=== PATIENT | male | born 1945 | race Caucasian/White ===

== ENCOUNTER → 2023-04-06 08:52 | Outpatient (BNVA) | payer OTHER, SELFPAY | PROVIDERS: Visit Provider Podiatrist Foot & Ankle Surgery | DX: E11.42 Type 2 diabetes mellitus with diabetic polyneuropathy (principal); M20.41 Other hammer toe(s) (acquired), right foot; M20.42 Other hammer toe(s) (acquired), left foot; M21.621 Bunionette of right foot; M21.622 Bunionette of left foot; L60.3 Nail dystrophy; Z79.84 Long term (current) use of oral hypoglycemic drugs | CPT/HCPCS: 11721; 99204 ==

== ENCOUNTER → 2023-06-15 07:51 | Outpatient (BNVA) | payer OTHER, SELFPAY | PROVIDERS: Visit Provider Podiatrist Foot & Ankle Surgery | DX: E11.42 Type 2 diabetes mellitus with diabetic polyneuropathy (principal); M20.41 Other hammer toe(s) (acquired), right foot; M20.42 Other hammer toe(s) (acquired), left foot; M21.621 Bunionette of right foot; M21.622 Bunionette of left foot; L60.3 Nail dystrophy; Z79.84 Long term (current) use of oral hypoglycemic drugs | CPT/HCPCS: 11721 ==

== ENCOUNTER → 2023-06-29 08:00 | Outpatient (BNVA) | payer OTHER, SELFPAY | PROVIDERS: Referring Provider Emergency Medicine Emergency Medical Services; Visit Provider Surgery | DX: Z98.890 Other specified postprocedural states (principal); Z86.010 Personal history of colon polyps | CPT/HCPCS: 99203 ==

== ENCOUNTER → 2023-09-07 07:58 | Outpatient (BNVA) | payer OTHER, SELFPAY | PROVIDERS: Visit Provider Podiatrist Foot & Ankle Surgery | DX: E11.42 Type 2 diabetes mellitus with diabetic polyneuropathy (principal); M20.41 Other hammer toe(s) (acquired), right foot; M20.42 Other hammer toe(s) (acquired), left foot; M21.621 Bunionette of right foot; M21.622 Bunionette of left foot; L60.3 Nail dystrophy; Z79.4 Long term (current) use of insulin | CPT/HCPCS: 11721 ==

== ENCOUNTER 2023-09-09 11:41 | Day surgery (SDC) | payer OTHER, SELFPAY ==
[2023-09-09 12:03] VITALS: BP 152/82; PULSE 69; RESP 18; TEMP 36.9; O2SAT 96; BMI 32.5
--- NOTE | 2023-09-09 12:03 | W.PM.OPSFHP ---
Same Day Surgery H&P Indication for Procedure/HPI DATE OF PROCEDURE: September 09, 2023 CHIEF COMPLAINT/INDICATIONFOR SURGICAL PROCEDURE: history of colon polyps PREOP DIAGNOSIS: history of colon polyps PLANNED PROCEDURE: Operation Date: 09/09/23 12:45 Proposed Procedures p 43175 colon G0121 screen colon A risk Z98.890(Not Applicable) - Marino Stephens MD Medications/Allergies* Home Medications Medication Instructions Recorded Confirmed Type atorvastatin 10 mg tablet 10 mg PO DAILY 04/06/23 09/09/23 History cetirizine 10 mg tablet 10 mg PO DAILY PRN Allergy Symptoms 04/06/23 09/09/23 History lisinopril 10 mg tablet 10 mg PO DAILY 04/06/23 09/09/23 History metformin 500 mg tablet 500 mg PO BID 04/06/23 09/09/23 History tamsulosin 0.4 mg capsule 0.4 mg PO BEDTIME 04/06/23 09/09/23 History Allergies/Adverse Reactions Allergy/AdvReac Type Severity Reaction Status Date / Time No Known Allergies Allergy Verified 09/09/23 12:00 Pertinent History/Comorbid Conditions* Surgical History (Updated 06/29/23 @ 10:07 by Marino Stephens MD) Hx of colonoscopy with polypectomy x2 4 yrs ago Social History Smoking and tobacco/nicotine status: never used tobacco/nicotine Pertinent Exam Findings alert, oriented x 3, clear to auscultation bilaterally and regular rate & rhythm Recommendations Surgery/Procedure today Coding Level of Care Code Acute Code for Chg Fwd
[2023-09-09] MEDS: sodium chloride 0.9% 1,000 ML 30 ML IV (12:09)
[2023-09-09 12:13] LABS: Glucose Point of Care 120 mg/dL (70-110)
--- NOTE | 2023-09-09 12:17 | ANES.PREANE2 ---
Pre-Anesthetic Assessment Height/Weight: Height 1.83 m Weight 108.862 kg Temp Pulse Resp BP Pulse Ox O2 Del Method 98.5 F 69 18 152/82 96 Room Air 09/09/23 12:03 09/09/23 12:03 09/09/23 12:03 09/09/23 12:03 09/09/23 12:03 09/09/23 12:03 Preop Diagnosis: history of colon polyps Operation Date: 09/09/23 12:45 Proposed Procedures p 46153 colon G0121 screen colon A risk Z98.890(Not Applicable) - Marino Stephens MD Last intake: Intake Last Liquid Date 09/09/23 Last Liquid Time 08:30 Last Solid Date 09/07/23 Last Solid Time 18:30 Social No alcohol and No tobacco Airway Submandibular: within normal limits Cervical ROM: within normal limits Mallampati: Class II Dentition: full Pulmonary None reported CV/HEM Hypertension GI None reported Metabolic Diabetes Mellitus Anesthetic Plan ASA status: 2 Anesthesia: MAC Risk of > 500 ml blood loss (7ml/kg in children): No Medications/Allergies Home Medications Medication Instructions Recorded Confirmed Last Taken Type atorvastatin 10 mg tablet 10 mg PO DAILY 04/06/23 09/09/23 09/09/23 History cetirizine 10 mg tablet 10 mg PO DAILY PRN Allergy Symptoms 04/06/23 09/09/23 09/09/23 History lisinopril 10 mg tablet 10 mg PO DAILY 04/06/23 09/09/23 09/09/23 History metformin 500 mg tablet 500 mg PO BID 04/06/23 09/09/23 09/08/23 History tamsulosin 0.4 mg capsule 0.4 mg PO BEDTIME 04/06/23 09/09/23 09/08/23 History magnesium citrate 300 ml PO DAILY PRN constipation 06/29/23 09/09/23 09/09/23 Rx #296 mL Allergies Allergy/AdvReac Type Severity Reaction Status Date / Time No Known Allergies Allergy Verified 09/09/23 12:00 Current Medications Generic Name Dose Route Start Last Admin Trade Name Freq PRN Reason Stop Dose Admin Sodium Chloride 1,000 mls @ 30 mls/hr 09/09/23 12:00 09/09/23 12:09 Sodium Chloride 0.9% IV 30 mls/hr .Q24H MAL Administration PFSH Anesthesia Surgical History Hx of colonoscopy with polypectomy x2 4 yrs ago Social History Smoking and tobacco/nicotine status: never used tobacco/nicotine Data Anesthesia Cardiac Studies: No Data to Display
[2023-09-09 13:01] VITALS: BP 110/62; PULSE 55; RESP 18; TEMP 36.1; O2SAT 98
[2023-09-09 13:10] VITALS: BP 102/68; PULSE 53; RESP 18; O2SAT 99
[2023-09-09 13:25] VITALS: BP 112/82; PULSE 56; RESP 18; O2SAT 98
--- NOTE | 2023-09-09 14:17 | ANE.PACU2 ---
Inpatient post-anesthesia follow up: Vital signs: Temperature 97 F Pulse Rate 56 Respiratory Rate 18 Blood Pressure 112/82 Pulse Oximetry 98 Oxygen Delivery Me thod Room Air Oxygen Flow Rate Fraction of Inspir ed Oxygen Hydration adequate: Yes Nausea and vomiting: No Pain level: 1 Mental status: Baseline Additional Comments: no apparent anesthetic complications noted.
== END 2023-09-09 14:00 | disposition home or self-care (01) ==
PROVIDERS: Visit Provider Surgery
PROC: 0DJD8ZZ Inspection of Lower Intestinal Tract, Via Natural or Artificial Opening Endoscopic (ICD-10-PCS; CPT 45378; principal; 2023-09-09 12:45)
DX: Z12.11 Encounter for screening for malignant neoplasm of colon (principal); Z86.010 Personal history of colon polyps; Z79.84 Long term (current) use of oral hypoglycemic drugs; K63.5 Polyp of colon; I10 Essential (primary) hypertension; E11.9 Type 2 diabetes mellitus without complications
CPT/HCPCS: 36416; 45385; 82962; J2704; J7030

== ENCOUNTER → 2023-12-01 11:33 | Outpatient (BNVA) | payer OTHER, SELFPAY | PROVIDERS: Visit Provider Surgery | DX: Z09 Encounter for follow-up examination after completed treatment for conditions other than malignant neoplasm (principal) | CPT/HCPCS: 99213 ==

== ENCOUNTER → 2023-12-14 08:01 | Outpatient (BNVA) | payer OTHER, SELFPAY | PROVIDERS: Visit Provider Podiatrist Foot & Ankle Surgery | DX: E11.42 Type 2 diabetes mellitus with diabetic polyneuropathy (principal); M20.41 Other hammer toe(s) (acquired), right foot; M20.42 Other hammer toe(s) (acquired), left foot; M21.621 Bunionette of right foot; M21.622 Bunionette of left foot; L60.3 Nail dystrophy; Z79.84 Long term (current) use of oral hypoglycemic drugs | CPT/HCPCS: 11721 ==

== ENCOUNTER → 2024-03-28 08:00 | Outpatient (BNVA) | payer OTHER, SELFPAY | PROVIDERS: Visit Provider Podiatrist Foot & Ankle Surgery | DX: E11.42 Type 2 diabetes mellitus with diabetic polyneuropathy (principal); L60.3 Nail dystrophy; Z79.84 Long term (current) use of oral hypoglycemic drugs | CPT/HCPCS: 11721 ==

== ENCOUNTER → 2024-06-27 08:39 | Outpatient (BNVA) | payer OTHER, SELFPAY | PROVIDERS: Visit Provider Podiatrist Foot & Ankle Surgery | DX: E11.42 Type 2 diabetes mellitus with diabetic polyneuropathy (principal); L60.3 Nail dystrophy | CPT/HCPCS: 11721 ==

== ENCOUNTER 2024-07-19 13:39 | Outpatient (CLI) | payer OTHER, SELFPAY | END 2024-07-19 13:40 | disposition home or self-care (01) | LOC: LAB 13:44 | PROVIDERS: PCP Nurse Practitioner Family; Visit Provider Urology | DX: N40.1 Benign prostatic hyperplasia with lower urinary tract symptoms (principal) | CPT/HCPCS: 36415; 84153 ==

== ENCOUNTER → 2024-09-26 08:47 | Outpatient (BNVA) | payer OTHER, SELFPAY | PROVIDERS: PCP Nurse Practitioner Family; Visit Provider Podiatrist Foot & Ankle Surgery | DX: E11.42 Type 2 diabetes mellitus with diabetic polyneuropathy (principal); L60.3 Nail dystrophy; Z79.84 Long term (current) use of oral hypoglycemic drugs | CPT/HCPCS: 11721 ==

== ENCOUNTER 2024-12-19 08:36 | Outpatient (CLI) | payer OTHER, SELFPAY ==
--- NOTE | 2024-12-19 08:41 | US_ITS ---
WS: [id number] RIGHT UPPER QUADRANT ULTRASOUND HISTORY: ELEVATED LIVER ENZYMES COMPARISON: None available. Liver: 17.2 cm in length. Top normal size liver. No mass. No intrahepatic duct dilatation. Portal Vein: Normal hepatopetal flow with monophasic waveform. Gallbladder: Normally distended gallbladder with no stones or wall thickening. CBD: 0.4 cm Pancreas: The body is normal. Head and tail obscured by bowel gas. Right kidney: 11.2 cm in length. Cortical cyst upper pole 1.6 x 1.1 x 1.6 cm. No obstruction or mass. Aorta and IVC: Unremarkable abdominal aorta and IVC. No ascites. US/US abdomen limited 12625 IMPRESSION: 1. Quality is limited by body habitus. 2. No cholelithiasis. 3. Liver top normal size. No intrahepatic duct dilatation. 4. Cortical cyst RIGHT kidney, maximum diameter 1.6 cm.
== END 2024-12-19 08:37 | disposition home or self-care (01) ==
LOC: RAD 08:38
PROVIDERS: PCP Family Medicine; Visit Provider Family Medicine
DX: Z01.89 Encounter for other specified special examinations (principal); N28.1 Cyst of kidney, acquired
CPT/HCPCS: 76705

== ENCOUNTER → 2024-12-26 09:02 | Outpatient (BNVA) | payer OTHER, SELFPAY | PROVIDERS: PCP Family Medicine; Visit Provider Podiatrist Foot & Ankle Surgery | DX: E11.8 Type 2 diabetes mellitus with unspecified complications (principal); E11.42 Type 2 diabetes mellitus with diabetic polyneuropathy; L60.3 Nail dystrophy; Z79.84 Long term (current) use of oral hypoglycemic drugs | CPT/HCPCS: 99213 ==

== ENCOUNTER 2025-03-26 15:09 | Emergency (ER) | payer MEDICARE, SELFPAY ==
--- OUTSIDE RECORDS SUMMARY | 2025-03-26 08:26 | XMS_ITS | Continuity of Care Document ---
Author Name [facility] Organization [facility] Care Team Providers Care Dramatic Reader Name Role Phone [facility] Unavailable Unavailable Problems Combined list of problems from Department of Defense and Veterans Affairs facilities. It does not include entries that were removed or entered in error. Problem Status Onset Date Problem Type Date of Resolution Comments Source Adenomatous polyp of colon Active Condition [facility] Benign prostatic hypertrophy Active Condition [facility] Benign Prostatic Hypertrophy Without Outflow Obstruction (SCT 753779663) Active Condition [facility] Diabetes Mellitus Type 2 (SCT 33833971) Active Condition [facility] Elevated blood pressure Active Condition [facility] History of hip surgery Active Condition Oct 02, 2022 Entered By: SEN WALLIS Comment: Bilateral replacement. [facility] HTN - Hypertension (SCT [id number]) Active Condition [facility] Hyperlipidemia (SCT 16311313) Active Condition [facility] Mixed hyperlipidemia Active Condition [facility] Nephrolithiasis Active Condition [facility] Rqx-ruoxvxr-tqarrmv nt diabetes mellitus Active Condition [facility] Osteoarthritis of bilateral hip joints Active Condition [facility] Prostate nodule Active Condition Sep 20, 2024 Entered By: GANESH RODRIGUEZ MY Comment: negative Bx [facility] Renal Impairment (SCT 404046280) Active Condition Nov 11, 2023 Entered By: SEN WALLIS Comment: Mild per lab 11/2023. 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, acc, init Active Diagnosis [facility] Diagnosis: ICD-10-CM T63.301A Toxic effect of unsp spider venom, accidental, init Active Diagnosis [facility] Diagnosis: ICD-10-CM Z48.02 Encounter for removal of sutures Active Diagnosis [facility] Diagnosis: ICD-10-CM D49.2 Neoplasm of unsp behavior of bone, soft tissue, and skin Active Diagnosis [facility] Diagnosis: ICD-10-CM E11.9 Type 2 diabetes mellitus without complications Active Diagnosis [facility] Diagnosis: ICD-10-CM Z23 Encounter for immunization Active Diagnosis [place] [facility] Diagnosis: ICD-10-CM Z46.1 Encounter for fitting and adjustment of hearing aid Active Diagnosis [place] [facility] Diagnosis: ICD-10-CM N28.9 Disorder of kidney and ureter, unspecified Active Diagnosis [facility] Medications Combined list of outpatient medications from Department of Defense and Veterans Affairs facilities.Medications provided include 1) outpatient medications from the last 15 months, and 2) patient-reported medications. Medication Details Route Status Patient Instructions Prescription Expires Prescription Number Last Dispense Date Ordering Provider Order Date Order Qty Source ATORVASTATI N CA 40MG TAB TAKE ONE-HALF TABLET BY MOUTH EVERY EVENING FOR HIGH CHOLESTE ROL ORAL ACTIVE 07/28/2025 [id number] BERT MONROY [address] [place] [address] CB ATORVASTATI N CA 40MG TAB TAKE ONE-HALF TABLET BY MOUTH EVERY EVENING FOR HIGH CHOLESTE ROL ORAL DISCONT INUED 07/22/2024 [id number] 4 CALE WALLIS [address] [place], [place] [address]OC CETIRIZINE HCL 10MG TAB TAKE ONE TABLET BY MOUTH ONCE A DAY NEEDED FOR ALLERGY SYMPTOMS ORAL ACTIVE 08/23/2025 [id number] 5 Joseph PEREZ Q [address] [place] [address] [facility] CETIRIZINE HCL 10MG TAB TAKE ONE TABLET BY MOUTH ONCE A DAY NEEDED FOR ALLERGY SYMPTOMS ORAL 07/22/2024 [id number] 4 CALE WALLIS [address] [place] [address] CRANBERRY EXTRACT CAP/TAB TAKE 1 CAP/TAB BY MOUTH EVERY DAY ORAL ACTIVE GINNA WHITLOCK MD 2014 [facility] EMPAGLIFLOZ IN 25MG TAB TAKE ONE-HALF TABLET BY MOUTH ONCE A DAY FOR DIABETES ORAL SUSPEND ED 12/14/2025 [id number] 5 SHAVON RODRIGUEZ [address] [place] [address] [facility] HYDROCHLORO THIAZIDE 12.5MG/TRACEY NOPRIL 10MG TAB TAKE 1 TABLET BY MOUTH EVERY MORNING FOR HIGH BLOOD PRESSURE ORAL ACTIVE 09/14/2025 [id number] 5 SHAVON RODRIGUEZ [address] [place] [address] [facility] HYDROCHLORO THIAZIDE 12.5MG/TRACEY NOPRIL 10MG TAB TAKE 1 TABLET BY MOUTH EVERY MORNING FOR HIGH BLOOD PRESSURE ORAL DISCONT INUED 07/22/2024 [id number] 4 CALE WALLIS [address] [place] [address] [facility] METFORMIN HCL 1000MG TAB TAKE ONE-HALF TABLET BY MOUTH TWICE A DAY WITH MEALS FOR DIABETES TAKE WITH FOOD. AVOID ALCOHOL. DISCONTI NUE BEFORE GETTING XRAY DYE. ORAL ACTIVE 08/19/2025 [id number] Joseph PEREZ Q [address] [place] [address] [facility] METFORMIN HCL 1000MG TAB TAKE ONE-HALF TABLET BY MOUTH TWICE A DAY WITH MEALS FOR DIABETES TAKE WITH FOOD. AVOID ALCOHOL. DISCONTI NUE BEFORE GETTING XRAY DYE. ORAL 07/22/2024 [id number] 4 CALE WALLIS [address] [place] [address] [facility] MULTIVITS W/MINERALS TAB/CAP (NO VIT K) TAKE ONE TABLET BY MOUTH EVERY DAY ORAL ACTIVE GINNA WHITLOCK MD 2014 [facility] TAMSULOSIN HCL 0.4MG CAP TAKE ONE CAPSULE BY MOUTH AT BEDTIME APPROXIM ATELY 30 MINUTES AFTER THE SAME MEAL EACH DAY ORAL ACTIVE 01/11/2026 [id number] 5 SHAVON RODRIGUEZ [address] [place] [address] [facility] TAMSULOSIN HCL 0.4MG CAP TAKE ONE CAPSULE BY MOUTH AT BEDTIME APPROXIM ATELY 30 MINUTES AFTER THE SAME MEAL EACH DAY ORAL DISCONT INUED 11/04/2024 [id number] 5 KADI CALE Ledy 2023 90 [facility] Immunizations Combined list of available immunizations from the Department of Defense and Veterans Affairs facilities. Immunization Series Date Given Administered By Site Reaction Lot Number CVX Code Drug Stand In Status Comments Source COVID-19 (MODERNA), MRNA, LNP-S, PF, 50 MCG/0.5 ML (AGES 12+ YEARS) 2024 JARRET AZAR R LEFT DELTO ID [id number] 312 complet ed [facility] TDAP 2024 JARRET AZAR R RIGHT DELTO ID [id number] 115 complet ed [facility] INFLUENZA, SPLIT VIRUS, TRIVALENT, PF 2023 HIGHFILL,CATRACHO NDA RIGHT DELTO ID [id number] 140 complet ed [facility] AT [facility] INFLUENZA, HIGH-DOSE, QUADRIVALENT 2022 MICHELLE TOBIN R LEFT DELTO ID [id number] 197 complet ed [facility] COVID-19 (MODERNA), MRNA, LNP-S, BIVALENT BOOSTER, PF, 50 MCG/0.5 ML OR 25MCG/0.25 ML DOSE 2021 WAYNE,LANC E A RIGHT DELTO ID [id number] 229 complet ed Booster for Series, [facility] INFLUENZA, INJECTABLE, MDCK, PRESERVATIVE FREE, QUADRIVALENT 2021 GRETARD,LANC E A LEFT DELTO ID [id number] 171 complet ed [facility], UNSPECIFIED FORMULATION 2021 88 complet ed HISTORICA L INFORMATI ON - FROM OTHER REGISTRY, noted in jlv [facility] ZOSTER RECOMBINANT 2 2021 187 [facility] ed [facility] ([facility]), MRNA, LNP-S, PF, 100 MCG OR 50 MCG DOSE 3 2020 207 complet ed [place] [facility] INFLUENZA, UNSPECIFIED FORMULATION 2020 88 complet ed [facility] [place] [facility] COVID-19 (MODERNA), MRNA, LNP-S, PF, 100 MCG/0.5ML DOSE OR 50 MCG/0.25ML DOSE 3 2020 207 complet ed HISTORICA L INFORMATI ON - FROM OTHER REGISTRY, noted in JLV [facility] DIVISIO N ZOSTER RECOMBINANT 1 2020 187 complet ed [facility] COVID-19 (MODERNA), MRNA, LNP-S, PF, 100 MCG/0.5 ML DOSE 2 2020 207 complet ed MOD; [id number]; 1 [facility] COVID-19 (MODERNA), MRNA, LNP-S, PF, 100 MCG/0.5 ML DOSE 1 2020 207 complet ed MOD; [id number]; 1 [facility] INFLUENZA, UNSPECIFIED FORMULATION 2019 88 complet ed [facility] [place] [facility] INFLUENZA, TRIVALENT, ADJUVANTED 2018 168 complet ed [facility] INFLUENZA, TRIVALENT, ADJUVANTED 2017 168 complet ed [facility] INFLUENZA, UNSPECIFIED FORMULATION 2017 88 complet ed [facility] INFLUENZA, INJECTABLE, QUADRIVALENT, PRESERVATIVE FREE 2016 150 complet ed [facility] INFLUENZA, SEASONAL, INJECTABLE, PRESERVATIVE FREE 2015 140 complet ed [facility] PNEUMOCOCCAL CONJUGATE PCV 13 2014 133 complet ed Wyeth Lot# [id number] exp-11/16 [facility] INFLUENZA, SEASONAL, INJECTABLE 2014 141 complet ed [facility] [place] [facility] TETANUS DIPHTHERIA AND PERTUSSIS (HISTORICAL) 2013 107 complet ed Adacel, Lot#[id number] AA Exp. . 2016 [facility] [place] [facility] TDAP [address] [facility] N INFLUENZA, UNSPECIFIED FORMULATION 2013 88 complet ed [facility] [place] [facility] PNEUMOCOCCAL POLYSACCHARID E [id number] 2010 33 complet ed [facility] Results Combined list of recent chemistry, hematology and other laboratory results from Department of Defense and Veterans Affairs, ranging from 15 months to all on record, depending upon the facility. Order Name Results Value Reference Range Date Interpretation Specimen Comments Source ACUTE HEPATITIS PROFILE (PB) HEPATITIS C VIRUS AB [PRESENCE] IN SERUM Nonreacti ve 11/28 Specimen Type: SERUM No comment entered. Ordering Provider: SHAVON RODRIGUEZ Report Released Date/Time : Nov 29, 2024 11:51 AM Reporting Lab: [place] [facility] [address] [place] [address] Performin g Lab: [place] [facility] [address] [place] [address] [facility] ACUTE HEPATITIS PROFILE (PB) HEPATITIS B VIRUS CORE IGM AB [PRESENCE] IN SERUM Nonreacti ve 11/28 Specimen Type: SERUM No comment entered. Ordering Provider: SHAVON RODRIGUEZ Report Released Date/Time : Nov 29, 2024 11:51 AM Reporting Lab: [place] [facility] [address] [place] [address] Performin g Lab: [place] [facility] [address] [place] [address] [facility] ACUTE HEPATITIS PROFILE (PB) HEPATITIS A VIRUS IGM AB [PRESENCE] IN SERUM Nonreacti ve 11/28 Specimen Type: SERUM No comment entered. Ordering Provider: SHAVON RODRIGUEZ Report Released Date/Time : Nov 29, 2024 11:51 AM Reporting Lab: [place] [facility] [address] [place] [address] Performin g Lab: [place] [facility] [address] [place] [address] [facility] ACUTE HEPATITIS PROFILE (PB) HEPATITIS B VIRUS SURFACE AG [PRESENCE] IN SERUM Nonreacti ve 11/28 Specimen Type: SERUM No comment entered. Ordering Provider: SHAVON RODRIGUEZ Report Released Date/Time : Nov 29, 2024 11:51 AM Reporting Lab: [place] [facility] [address] [place] [address] Performin g Lab: [place] [facility] [address] [place] [address] [facility] CBC LEUKOCYTES [#/VOLUME] IN BLOOD BY AUTOMATED COUNT 4.9 10*3/uL 3.6 - 11.2 11/28 Specimen Type: BLOOD No comment entered. Ordering Provider: SHAVON RODRIGUEZ Report Released Date/Time : Nov 24, 2024 10:49 AM Reporting Lab: [place] [facility] [address] [place] [address] Performin g Lab: [place] [facility] [address] [place] [address] [facility] CBC ERYTHROCYTE S [#/VOLUME] IN BLOOD BY AUTOMATED COUNT 4.34 10*6/uL 4.10 - 5.70 11/28 Specimen Type: BLOOD No comment entered. Ordering Provider: SHAVON RODRIGUEZ Report Released Date/Time : Nov 24, 2024 10:49 AM Reporting Lab: [place] [facility] [address] [place] [address] 8 Performin g Lab: [place] [facility] [address] [place] [address] [facility] CBC HEMOGLOBIN [MASS/VOLUM E] IN BLOOD 13.3 g/dL 13.1 - 16.8 11/28 Specimen Type: BLOOD No comment entered. Ordering Provider: SHAVON RODRIGUEZ Report Released Date/Time : Nov 24, 2024 10:49 AM Reporting Lab: [place] [facility] [address] [place] [address] Performin g Lab: [place] [facility] [address] [place] [address] [facility] CBC HEMATOCRIT [VOLUME FRACTION] OF BLOOD 39.6 38.2 - 48.4 11/28 Specimen Type: BLOOD No comment entered. Ordering Provider: SHAVON RODRIGUEZ Report Released Date/Time : Nov 24, 2024 10:49 AM Reporting Lab: [place] [facility] [address] [place] [address] Performin g Lab: [place] [facility] [address] [place] [address] [facility] CBC MCV [ENTITIC VOLUME] BY AUTOMATED COUNT 91.2 fL 80.0 - 100.0 11/28 Specimen Type: BLOOD No comment entered. Ordering Provider: SHAVON RODRIGUEZ Report Released Date/Time : Nov 24, 2024 10:49 AM Reporting Lab: [place] [facility] [address] [place] [address] Performin g Lab: [place] [facility] [address] [place] [address] [facility] CBC MCH [ENTITIC MASS] BY AUTOMATED COUNT 30.6 pg 27.0 - 34.0 11/28 Specimen Type: BLOOD No comment entered. Ordering Provider: SHAVON RODRIGUEZ Report Released Date/Time : Nov 24, 2024 10:49 AM Reporting Lab: [place] [facility] [address] [place] [address] Performin g Lab: [place] [facility] [address] [place] [address] [facility] CBC MCHC [MASS/VOLUM E] BY AUTOMATED COUNT 33.6 g/dL 33.0 - 36.0 11/28 Specimen Type: BLOOD No comment entered. Ordering Provider: SHAVON RODRIGUEZ Report Released Date/Time : Nov 24, 2024 10:49 AM Reporting Lab: [place] [facility] [address] [place] [address] Performin g Lab: [place] [facility] [address] [place] [address] [facility] CBC PLATELETS [#/VOLUME] IN BLOOD BY AUTOMATED COUNT 230 10*3/uL 150 - 400 11/28 Specimen Type: BLOOD No comment entered. Ordering Provider: SHAVON RODRIGUEZ Report Released Date/Time : Nov 24, 2024 10:49 AM Reporting Lab: [place] [facility] [address] [place] [address] Performin g Lab: [place] [facility] [address] [place] [address] [facility] CBC PLATELET MEAN VOLUME [ENTITIC VOLUME] IN BLOOD BY AUTOMATED COUNT 9.7 fL 7.5 - 11.2 11/28 Specimen Type: BLOOD No comment entered. Ordering Provider: SHAVON RODRIGUEZ Report Released Date/Time : Nov 24, 2024 10:49 AM Reporting Lab: [place] [facility] [address] [place] [address] Performin g Lab: [place] [facility] [address] [place] [address] [facility] CBC ERYTHROCYTE DISTRIBUTIO N WIDTH [RATIO] BY AUTOMATED COUNT 13.0 11.8 - 15.1 11/28 Specimen Type: BLOOD No comment entered. Ordering Provider: SHAVON RODRIGUEZ Report Released Date/Time : Nov 24, 2024 10:49 AM Reporting Lab: [place] [facility] [address] [place] [address] Performin g Lab: [place] [facility] [address] [place] [address] [facility] CBC LYMPHOCYTES /100 LEUKOCYTES IN BLOOD BY AUTOMATED COUNT 17.2 11/28 Specimen Type: BLOOD No comment entered. Ordering Provider: SHAVON RODRIGUEZ Report Released Date/Time : Nov 24, 2024 10:49 AM Reporting Lab: [place] [facility] [address] [place] [address] Performin g Lab: [place] [facility] [address] [place] [address] [facility] CBC MONOCYTES/1 00 LEUKOCYTES IN BLOOD BY AUTOMATED COUNT 8.0 11/28 Specimen Type: BLOOD No comment entered. Ordering Provider: SHAVON RODRIGUEZ Report Released Date/Time : Nov 24, 2024 10:49 AM Reporting Lab: [place] [facility] [address] [place] [address] 8 Performin g Lab: [place] [facility] [address] [place] [address] [facility] CBC NEUTROPHILS /100 LEUKOCYTES IN BLOOD BY AUTOMATED COUNT 70.1 11/28 Specimen Type: BLOOD No comment entered. Ordering Provider: SHAVON RODRIGUEZ Report Released Date/Time : Nov 24, 2024 10:49 AM Reporting Lab: [place] [facility] [address] [place] [address] Performin g Lab: [place] [facility] [address] [place] [address] [facility] CBC EOSINOPHILS /100 LEUKOCYTES IN BLOOD BY AUTOMATED COUNT 3.7 11/28 Specimen Type: BLOOD No comment entered. Ordering Provider: SHAVON RODRIGUEZ Report Released Date/Time : Nov 24, 2024 10:49 AM Reporting Lab: [place] [facility] [address] [place] [address] Performin g Lab: [place] [facility] [address] [place] [address] [facility] CBC BASOPHILS/1 00 LEUKOCYTES IN BLOOD BY AUTOMATED COUNT 0.8 11/28 Specimen Type: BLOOD No comment entered. Ordering Provider: SHAVON RODRIGUEZ Report Released Date/Time : Nov 24, 2024 10:49 AM Reporting Lab: [place] [facility] [address] [place] [address] 8 Performin g Lab: [place] [facility] [address] [place] [address] [facility] CBC LYMPHOCYTES [#/VOLUME] IN BLOOD BY AUTOMATED COUNT 0.84 10*3/uL 0.77 - 4.50 11/28 Specimen Type: BLOOD No comment entered. Ordering Provider: SHAVON RODRIGUEZ Report Released Date/Time : Nov 24, 2024 10:49 AM Reporting Lab: [place] [facility] [address] [place] [address] Performin g Lab: [place] [facility] [address] [place] [address] [facility] CBC MONOCYTES [#/VOLUME] IN BLOOD BY AUTOMATED COUNT 0.39 10*3/uL 0.19 - 0.8 11/28 Specimen Type: BLOOD No comment entered. Ordering Provider: SHAVON RODRIGUEZ Report Released Date/Time : Nov 24, 2024 10:49 AM Reporting Lab: [place] [facility] [address] [place] [address] Performin g Lab: [place] [facility] [address] [place] [address] [facility] CBC NEUTROPHILS [#/VOLUME] IN BLOOD BY AUTOMATED COUNT 3.43 10*3/uL 2.10 - 8.00 11/28 Specimen Type: BLOOD No comment entered. Ordering Provider: SHAVON RODRIGUEZ Report Released Date/Time : Nov 24, 2024 10:49 AM Reporting Lab: [place] [facility] [address] [place] [address] Performin g Lab: [place] [facility] [address] [place] [address] [facility] CBC EOSINOPHILS [#/VOLUME] IN BLOOD BY AUTOMATED COUNT 0.18 10*3/uL 0.00 - 0.60 11/28 Specimen Type: BLOOD No comment entered. Ordering Provider: SHAVON RODRIGUEZ Report Released Date/Time : Nov 24, 2024 10:49 AM Reporting Lab: [place] [facility] [address] [place] [address] Performin g Lab: [place] [facility] [address] [place] [address] [facility] CBC BASOPHILS [#/VOLUME] IN BLOOD BY AUTOMATED COUNT 0.04 10*3/uL 0.00 - 0.20 11/28 Specimen Type: BLOOD No comment entered. Ordering Provider: SHAVON RODRIGUEZ Report Released Date/Time : Nov 24, 2024 10:49 AM Reporting Lab: [place] [facility] [address] [place] [address] Performin g Lab: [place] [facility] [address] [place] [address] [facility] CBC IMMATURE GRANULOCYTE S/100 LEUKOCYTES IN BLOOD BY AUTOMATED COUNT 0.2 11/28 Specimen Type: BLOOD No comment entered. Ordering Provider: SHAVON RODRIGUEZ Report Released Date/Time : Nov 24, 2024 10:49 AM Reporting Lab: [place] [facility] [address] [place] [address] Performin g Lab: [place] [facility] [address] [place] [address] [facility] CBC IMMATURE GRANULOCYTE S [#/VOLUME] IN BLOOD BY AUTOMATED COUNT 0.01 10*3/uL 0.00 - 0.05 11/28 Specimen Type: BLOOD No comment entered. Ordering Provider: SHAVON RODRIGUEZ Report Released Date/Time : Nov 24, 2024 10:49 AM Reporting Lab: [place] [facility] [address] [place] [address] Performin g Lab: [place] [facility] [address] [place] [address] [facility] CHOLESTERO L PANEL (PB) CHOLESTEROL [MASS/VOLUM E] IN SERUM OR PLASMA 106 mg/dL 0 - 200 11/28 Specimen Type: PLASMA No comment entered. Ordering Provider: SHAVON RODRIGUEZ Report Released Date/Time : Nov 24, 2024 10:49 AM Reporting Lab: [place] [facility] [address] [place] [address] Performin g Lab: [place] [facility] [address] [place] [address] [facility] CHOLESTERO L PANEL (PB) TRIGLYCERID E [MASS/VOLUM E] IN SERUM OR PLASMA 161 mg/dL 0 - 150 11/28 H Specimen Type: PLASMA No comment entered. Ordering Provider: SHAVON RODRIGUEZ Report Released Date/Time : Nov 24, 2024 10:49 AM Reporting Lab: [place] [facility] [address] [place] [address] Performin g Lab: [place] [facility] [address] [place] [address] [facility] CHOLESTERO L PANEL (PB) CHOLESTEROL IN LDL [MASS/VOLUM E] IN SERUM OR PLASMA BY CALCULATION 36.8 mg/dL 11/28 Specimen Type: PLASMA No comment entered. Ordering Provider: SHAVON RODRIGUEZ Report Released Date/Time : Nov 24, 2024 10:49 AM Reporting Lab: [place] [facility] [address] [place] [address] Performin g Lab: [place] [facility] [address] [place] [address] [facility] CHOLESTERO L PANEL (PB) CHOLESTEROL IN HDL [MASS/VOLUM E] IN SERUM OR PLASMA 37.0 mg/dL 40 11/28 L Specimen Type: PLASMA No comment entered. Ordering Provider: SHAVON RODRIGUEZ Report Released Date/Time : Nov 24, 2024 10:49 AM Reporting Lab: [place] [facility] [address] [place] [address] Performin g Lab: [place] [facility] [address] [place] [address] [facility] CHOLESTERO L PANEL (PB) CHOLESTEROL IN HDL/CHOLEST JETT.TOTAL [MASS RATIO] IN SERUM OR PLASMA 34.9 11/28 Specimen Type: PLASMA No comment entered. Ordering Provider: SHAVON RODRIGUEZ Report Released Date/Time : Nov 24, 2024 10:49 AM Reporting Lab: [place] [facility] [address] [place] [phone] 8 Performin g Lab: [place] [facility] [address] [place] [address] 8 [facility] COMPREHENS AZAR METABOLIC PANEL CREATININE [MASS/VOLUM E] IN SERUM OR PLASMA 1.21 mg/dL 0.7 - 1.3 11/28 Specimen Type: PLASMA No comment entered. Ordering Provider: SHAVON RODRIGUEZ Report Released Date/Time : Nov 24, 2024 10:49 AM Reporting Lab: [place] [facility] [address] [place] [address] 8 Performin g Lab: [place] [facility] [address] [place] [address] 8 [facility] COMPREHENS AZAR METABOLIC PANEL UREA NITROGEN [MASS/VOLUM E] IN SERUM OR PLASMA 19 mg/dL 9 - 11/28 Specimen Type: PLASMA No comment entered. Ordering Provider: SHAVON RODRIGUEZ Report Released Date/Time : Nov 24, 2024 10:49 AM Reporting Lab: [place] [facility] [address] [place] [address] 8 Performin g Lab: [place] [facility] [address] [place] [address] 8 [facility] COMPREHENS AZAR METABOLIC PANEL GLUCOSE [MASS/VOLUM E] IN SERUM OR PLASMA 145 mg/dL 72 - 99 11/28 H Specimen Type: PLASMA No comment entered. Ordering Provider: SHAVON RODRIGUEZ Report Released Date/Time : Nov 24, 2024 10:49 AM Reporting Lab: [place] [facility] [address] [place] [address] 8 Performin g Lab: [place] [facility] [address] [place] [address] 8 [facility] COMPREHENS AZAR METABOLIC PANEL SODIUM [MOLES/VOLU ME] IN SERUM OR PLASMA 141 meq/L 136 - 145 11/28 Specimen Type: PLASMA No comment entered. Ordering Provider: SHAVON RODRIGUEZ Report Released Date/Time : Nov 24, 2024 10:49 AM Reporting Lab: [place] [facility] [address] [place] [address] 8 Performin g Lab: [place] [facility] [address] [place] [address] 8 [facility] COMPREHENS AZAR METABOLIC PANEL POTASSIUM [MOLES/VOLU ME] IN SERUM OR PLASMA 3.9 meq/L 3.5 - 5 11/28 Specimen Type: PLASMA No comment entered. Ordering Provider: SHAVON RODRIGUEZ Report Released Date/Time : Nov 24, 2024 10:49 AM Reporting Lab: [place] [facility] [address] [place] [address] 8 Performin g Lab: [place] [facility] [address] [place] [address] 8 [facility] COMPREHENS AZAR METABOLIC PANEL CHLORIDE [MOLES/VOLU ME] IN SERUM OR PLASMA 106 meq/L 98 - 107 11/28 Specimen Type: PLASMA No comment entered. Ordering Provider: SHAVON RODRIGUEZ Report Released Date/Time : Nov 24, 2024 10:49 AM Reporting Lab: [place] [facility] [address] [place] [address] 8 Performin g Lab: [place] [facility] [address] [place] [address] 8 [facility] COMPREHENS AZAR METABOLIC PANEL CARBON DIOXIDE, TOTAL [MOLES/VOLU ME] IN SERUM OR PLASMA 25 meq/L 22 - 31 11/28 Specimen Type: PLASMA No comment entered. Ordering Provider: SHAVON RODRIGUEZ Report Released Date/Time : Nov 24, 2024 10:49 AM Reporting Lab: [place] [facility] [address] [place] [address] 8 Performin g Lab: [place] [facility] [address] [place] [address] 8 [facility] COMPREHENS AZAR METABOLIC PANEL CALCIUM [MASS/VOLUM E] IN SERUM OR PLASMA 9.4 mg/dL 8.4 - 10.4 11/28 Specimen Type: PLASMA No comment entered. Ordering Provider: SHAVON RODRIGUEZ Report Released Date/Time : Nov 24, 2024 10:49 AM Reporting Lab: [place] [facility] [address] [place] [address] 8 Performin g Lab: [place] [facility] [address] [place] [address] 8 [facility] COMPREHENS AZAR METABOLIC PANEL PROTEIN [MASS/VOLUM E] IN SERUM OR PLASMA 7.5 g/dL 6 - 8.6 11/28 Specimen Type: PLASMA No comment entered. Ordering Provider: SHAVON RODRIGUEZ Report Released Date/Time : Nov 24, 2024 10:49 AM Reporting Lab: [place] [facility] [address] [place] [address] 8 Performin g Lab: [place] [facility] [address] [place] [address] 8 [facility] COMPREHENS AZAR METABOLIC PANEL ALBUMIN [MASS/VOLUM E] IN SERUM OR PLASMA 4.4 g/dL 3.4 - 5 11/28 Specimen Type: PLASMA No comment entered. Ordering Provider: SHAVON RODRIGUEZ Report Released Date/Time : Nov 24, 2024 10:49 AM Reporting Lab: [place] [facility] [address] [place] [address] 8 Performin g Lab: [place] [facility] [address] [place] [address] 8 [facility] COMPREHENS AZAR METABOLIC PANEL BILIRUBIN.T OTAL [MASS/VOLUM E] IN SERUM OR PLASMA 0.8 mg/dL 0.2 - 1.2 11/28 Specimen Type: PLASMA No comment entered. Ordering Provider: SHAVON RODRIGUEZ Report Released Date/Time : Nov 24, 2024 10:49 AM Reporting Lab: [place] [facility] [address] [place] [address] 8 Performin g Lab: [place] [facility] [address] [place] [address] 8 [facility] COMPREHENS AZAR METABOLIC PANEL ALKALINE PHOSPHATASE [ENZYMATIC ACTIVITY/VO LUME] IN SERUM OR PLASMA 97 U/L 40 - 150 11/28 Specimen Type: PLASMA No comment entered. Ordering Provider: SHAVON RODRIGUEZ Report Released Date/Time : Nov 24, 2024 10:49 AM Reporting Lab: [place] [facility] [address] [place] [address] 8 Performin g Lab: [place] [facility] [address] [place] [address] 8 [facility] COMPREHENS AZAR METABOLIC PANEL ASPARTATE AMINOTRANSF ERASE [ENZYMATIC ACTIVITY/VO LUME] IN SERUM OR PLASMA 38 U/L 5 - 34 11/28 H Specimen Type: PLASMA No comment entered. Ordering Provider: SHAVON RODRIGUEZ Report Released Date/Time : Nov 24, 2024 10:49 AM Reporting Lab: [place] [facility] [address] [place] [address] 8 Performin g Lab: [place] [facility] [address] [place] [address] 8 [facility] COMPREHENS AZAR METABOLIC PANEL ALANINE AMINOTRANSF ERASE [ENZYMATIC ACTIVITY/VO LUME] IN SERUM OR PLASMA 44 U/L 8 - 40 11/28 H Specimen Type: PLASMA No comment entered. Ordering Provider: SHAVON RODRIGUEZ Report Released Date/Time : Nov 24, 2024 10:49 AM Reporting Lab: [place] [facility] [address] [place] [address] 8 Performin g Lab: [place] [facility] [address] [place] [address] 8 [facility] COMPREHENS AZAR METABOLIC PANEL GLOMERULAR FILTRATION RATE/1.73 SQ M.PREDICTED [VOLUME RATE/AREA] IN SERUM, PLASMA OR BLOOD BY CREATININE- BASED FORMULA (CKD-EPI 2020) 61 11/28 Specimen Type: PLASMA No comment entered. Ordering Provider: SHAVON RODRIGUEZ Report Released Date/Time : Nov 24, 2024 10:49 AM Reporting Lab: [place] [facility] [address] [place] [address] 8 Performin g Lab: [place] [facility] [address] [place] [address] 8 [facility] HGA1C HEMOGLOBIN A1C/HEMOGLO BIN.TOTAL IN BLOOD 7.5 4.0 - 6.0 11/28 H Specimen Type: BLOOD No comment entered. Ordering Provider: SHAVON RODRIGUEZ Report Released Date/Time : Nov 24, 2024 10:49 AM Reporting Lab: [place] [facility] [address] [place] [address] 8 Performin g Lab: [place] [facility] [address] [place] [address] 8 [facility] TSH (MA-PB) THYROTROPIN [UNITS/VOLU ME] IN SERUM OR PLASMA 1.669 u[IU]/mL 0.47 - 5 11/28 Specimen Type: SERUM No comment entered. Ordering Provider: SHAVON RODRIGUEZ Report Released Date/Time : Nov 24, 2024 10:49 AM Reporting Lab: [place] [facility] [address] [place] [address] 8 Performin g Lab: [place] [facility] [address] [place] [address] 8 [facility] URINE ALBUMIN PROFILE-ih (PB) ALBUMIN [MASS/VOLUM E] IN URINE 7.56 mg/L 0 - 30 11/28 Specimen Type: URINE No comment entered. Ordering Provider: SHAVON RODRIGUEZ Report Released Date/Time : Nov 24, 2024 10:49 AM Reporting Lab: [place] [facility] [address] [place] [address] 8 Performin g Lab: [place] [facility] [address] [place] [address] 8 [facility] URINE ALBUMIN PROFILE-ih (PB) ALBUMIN/CRE ATININE [MASS RATIO] IN URINE 4.96 ug/mg 11/28 Specimen Type: URINE No comment entered. Ordering Provider: SHAVON RODRIGUEZ Report Released Date/Time : Nov 24, 2024 10:49 AM Reporting Lab: [place] [facility] [address] [place] [address] 8 Performin g Lab: [place] [facility] [address] [place] [address] 8 [facility] URINE ALBUMIN PROFILE-ih (PB) CREATININE [MASS/VOLUM E] IN URINE 152.56 mg/dL 11/28 Specimen Type: URINE No comment entered. Ordering Provider: SHAVON RODRIGUEZ Report Released Date/Time : Nov 24, 2024 10:49 AM Reporting Lab: [place] [facility] [address] [place] [address] 8 Performin g Lab: [place] [facility] [address] [place] [address] 8 [facility] CBC LEUKOCYTES [#/VOLUME] IN BLOOD BY AUTOMATED COUNT 4.5 10*3/uL 3.6 - 11.2 11/02 Specimen Type: BLOOD No comment entered. Ordering Provider: CALE WALLIS Report Released Date/Time : Nov 03, 2023 09:48 AM Reporting Lab: [place] [facility] [address] [place] [address] 8 Performin g Lab: [place] [facility] [address] [place] [address] 8 [facility] CBC ERYTHROCYTE S [#/VOLUME] IN BLOOD BY AUTOMATED COUNT 4.32 10*6/uL 4.10 - 5.70 11/02 Specimen Type: BLOOD No comment entered. Ordering Provider: CALE WALLIS Report Released Date/Time : Nov 03, 2023 09:48 AM Reporting Lab: [place] [facility] [address] [place] [address] 8 Performin g Lab: [place] [facility] [address] [place] [address] 8 [facility] CBC HEMOGLOBIN [MASS/VOLUM E] IN BLOOD 13.6 g/dL 13.1 - 16.8 11/02 Specimen Type: BLOOD No comment entered. Ordering Provider: CALE WALLIS Report Released Date/Time : Nov 03, 2023 09:48 AM Reporting Lab: [place] [facility] [address] [place] [address] 8 Performin g Lab: [place] [facility] [address] [place] [address] 8 [facility] CBC HEMATOCRIT [VOLUME FRACTION] OF BLOOD 39.8 38.2 - 48.4 11/02 Specimen Type: BLOOD No comment entered. Ordering Provider: CALE WALLIS Report Released Date/Time : Nov 03, 2023 09:48 AM Reporting Lab: [place] [facility] [address] [place] [address] 8 Performin g Lab: [place] [facility] [address] [place] [address] 8 [facility] CBC MCV [ENTITIC VOLUME] BY AUTOMATED COUNT 92.1 fL 80.0 - 100.0 11/02 Specimen Type: BLOOD No comment entered. Ordering Provider: CALE WALLIS Report Released Date/Time : Nov 03, 2023 09:48 AM Reporting Lab: [place] [facility] [address] [place] [address] 8 Performin g Lab: [place] [facility] [address] [place] [address] 8 [facility] CBC MCH [ENTITIC MASS] BY AUTOMATED COUNT 31.5 pg 27.0 - 34.0 11/02 Specimen Type: BLOOD No comment entered. Ordering Provider: CALE WALLIS Report Released Date/Time : Nov 03, 2023 09:48 AM Reporting Lab: [place] [facility] [address] [place] [address] 8 Performin g Lab: [place] [facility] [address] [place] [address] 8 [facility] CBC MCHC [MASS/VOLUM E] BY AUTOMATED COUNT 34.2 g/dL 33.0 - 36.0 11/02 Specimen Type: BLOOD No comment entered. Ordering Provider: CALE WALLIS Report Released Date/Time : Nov 03, 2023 09:48 AM Reporting Lab: [place] [facility] [address] [place] [address] 8 Performin g Lab: [place] [facility] [address] [place] [address] 8 [facility] CBC PLATELETS [#/VOLUME] IN BLOOD BY AUTOMATED COUNT 213 10*3/uL 150 - 400 11/02 Specimen Type: BLOOD No comment entered. Ordering Provider: CALE WALLIS Report Released Date/Time : Nov 03, 2023 09:48 AM Reporting Lab: [place] [facility] [address] [place] [address] 8 Performin g Lab: [place] [facility] [address] [place] [address] 8 [facility] CBC PLATELET MEAN VOLUME [ENTITIC VOLUME] IN BLOOD BY AUTOMATED COUNT 9.7 fL 7.5 - 11.2 11/02 Specimen Type: BLOOD No comment entered. Ordering Provider: CALE WALLIS Report Released Date/Time : Nov 03, 2023 09:48 AM Reporting Lab: [place] [facility] [address] [place] [address] 8 Performin g Lab: [place] [facility] [address] [place] [address] 8 [facility] CBC ERYTHROCYTE DISTRIBUTIO N WIDTH [RATIO] BY AUTOMATED COUNT 12.7 11.8 - 15.1 11/02 Specimen Type: BLOOD No comment entered. Ordering Provider: CALE WALLIS Report Released Date/Time : Nov 03, 2023 09:48 AM Reporting Lab: [place] [facility] [address] [place] [address] 8 Performin g Lab: [place] [facility] [address] [place] [address] 8 [facility] CBC LYMPHOCYTES /100 LEUKOCYTES IN BLOOD BY AUTOMATED COUNT 24.2 11/02 Specimen Type: BLOOD No comment entered. Ordering Provider: CALE WALLIS Report Released Date/Time : Nov 03, 2023 09:48 AM Reporting Lab: [place] [facility] [address] [place] [address] 8 Performin g Lab: [place] [facility] [address] [place] [address] 8 [facility] CBC MONOCYTES/1 00 LEUKOCYTES IN BLOOD BY AUTOMATED COUNT 9.0 11/02 Specimen Type: BLOOD No comment entered. Ordering Provider: CALE WALLIS Report Released Date/Time : Nov 03, 2023 09:48 AM Reporting Lab: [place] [facility] [address] [place] [address] 8 Performin g Lab: [place] [facility] [address] [place] [address] 8 [facility] CBC NEUTROPHILS /100 LEUKOCYTES IN BLOOD BY AUTOMATED COUNT 62.0 11/02 Specimen Type: BLOOD No comment entered. Ordering Provider: CALE WALLIS Report Released Date/Time : Nov 03, 2023 09:48 AM Reporting Lab: [place] [facility] [address] [place] [address] 8 Performin g Lab: [place] [facility] [address] [place] [address] 8 [facility] CBC EOSINOPHILS /100 LEUKOCYTES IN BLOOD BY AUTOMATED COUNT 3.5 11/02 Specimen Type: BLOOD No comment entered. Ordering Provider: CALE WALLIS Report Released Date/Time : Nov 03, 2023 09:48 AM Reporting Lab: [place] [facility] [address] [place] [address] 8 Performin g Lab: [place] [facility] [address] [place] [address] 8 [facility] CBC BASOPHILS/1 00 LEUKOCYTES IN BLOOD BY AUTOMATED COUNT 1.3 11/02 Specimen Type: BLOOD No comment entered. Ordering Provider: CALE WALLIS Report Released Date/Time : Nov 03, 2023 09:48 AM Reporting Lab: [place] [facility] [address] [place] [address] 8 Performin g Lab: [place] [facility] [address] [place] [address] 8 [facility] CBC LYMPHOCYTES [#/VOLUME] IN BLOOD BY AUTOMATED COUNT 1.10 10*3/uL 0.77 - 4.50 11/02 Specimen Type: BLOOD No comment entered. Ordering Provider: CALE WALLIS Report Released Date/Time : Nov 03, 2023 09:48 AM Reporting Lab: [place] [facility] [address] [place] [address] 8 Performin g Lab: [place] [facility] [address] [place] [address] 8 [facility] CBC MONOCYTES [#/VOLUME] IN BLOOD BY AUTOMATED COUNT 0.41 10*3/uL 0.19 - 0.8 11/02 Specimen Type: BLOOD No comment entered. Ordering Provider: CALE WALLIS Report Released Date/Time : Nov 03, 2023 09:48 AM Reporting Lab: [place] [facility] [address] [place] [address] 8 Performin g Lab: [place] [facility] [address] [place] [address] 8 [facility] CBC NEUTROPHILS [#/VOLUME] IN BLOOD BY AUTOMATED COUNT 2.81 10*3/uL 2.10 - 8.00 11/02 Specimen Type: BLOOD No comment entered. Ordering Provider: CALE WALLIS Report Released Date/Time : Nov 03, 2023 09:48 AM Reporting Lab: [place] [facility] [address] [place] [address] 8 Performin g Lab: [place] [facility] [address] [place] [address] 8 [facility] CBC EOSINOPHILS [#/VOLUME] IN BLOOD BY AUTOMATED COUNT 0.16 10*3/uL 0.00 - 0.60 11/02 Specimen Type: BLOOD No comment entered. Ordering Provider: CALE WALLIS Report Released Date/Time : Nov 03, 2023 09:48 AM Reporting Lab: [place] [facility] [address] [place] [address] 8 Performin g Lab: [place] [facility] [address] [place] [address] 8 [facility] CBC BASOPHILS [#/VOLUME] IN BLOOD BY AUTOMATED COUNT 0.06 10*3/uL 0.00 - 0.20 11/02 Specimen Type: BLOOD No comment entered. Ordering Provider: CALE WALLIS Report Released Date/Time : Nov 03, 2023 09:48 AM Reporting Lab: [place] [facility] [address] [place] [address] 8 Performin g Lab: [place] [facility] [address] [place] [address] 8 [facility] CBC IMMATURE GRANULOCYTE S/100 LEUKOCYTES IN BLOOD BY AUTOMATED COUNT 0.0 11/02 Specimen Type: BLOOD No comment entered. Ordering Provider: CALE WALLIS Report Released Date/Time : Nov 03, 2023 09:48 AM Reporting Lab: [place] [facility] [address] [place] [address] 8 Performin g Lab: [place] [facility] [address] [place] [address] 8 [facility] CBC IMMATURE GRANULOCYTE S [#/VOLUME] IN BLOOD BY AUTOMATED COUNT 0.00 10*3/uL 0.00 - 0.05 11/02 Specimen Type: BLOOD No comment entered. Ordering Provider: CALE WALLIS Report Released Date/Time : Nov 03, 2023 09:48 AM Reporting Lab: [place] [facility] [address] [place] [address] 8 Performin g Lab: [place] [facility] [address] [place] [address] 8 [facility] COMPREHENS AZAR METABOLIC PANEL CREATININE [MASS/VOLUM E] IN SERUM OR PLASMA 1.32 mg/dL 0.7 - 1.3 11/02 H Specimen Type: PLASMA No comment entered. Ordering Provider: CALE WALLIS Report Released Date/Time : Nov 03, 2023 09:48 AM Reporting Lab: [place] [facility] [address] [place] [address] 8 Performin g Lab: [place] [facility] [address] [place] [address] 8 [facility] COMPREHENS AZAR METABOLIC PANEL UREA NITROGEN [MASS/VOLUM E] IN SERUM OR PLASMA 24 mg/dL 9 - 25 11/02 Specimen Type: PLASMA No comment entered. Ordering Provider: CAEL WALLIS Report Released Date/Time : Nov 03, 2023 09:48 AM Reporting Lab: [place] [facility] [address] [place] [address] 8 Performin g Lab: [place] [facility] [address] [place] [address] 8 [facility] COMPREHENS AZAR METABOLIC PANEL GLUCOSE [MASS/VOLUM E] IN SERUM OR PLASMA 123 mg/dL 72 - 99 11/02 H Specimen Type: PLASMA No comment entered. Ordering Provider: CALE WALLIS Report Released Date/Time : Nov 03, 2023 09:48 AM Reporting Lab: [place] [facility] [address] [place] [address] 8 Performin g Lab: [place] [facility] [address] [place] [address] 8 [facility] COMPREHENS AZAR METABOLIC PANEL SODIUM [MOLES/VOLU ME] IN SERUM OR PLASMA 137 meq/L 136 - 145 11/02 Specimen Type: PLASMA No comment entered. Ordering Provider: CALE WALLIS Report Released Date/Time : Nov 03, 2023 09:48 AM Reporting Lab: [place] [facility] [address] [place] [address] Performin g Lab: [place] [facility] [address] [place] [address] [facility] COMPREHENS AZAR METABOLIC PANEL POTASSIUM [MOLES/VOLU ME] IN SERUM OR PLASMA 4.3 meq/L 3.5 - 5 11/02 Specimen Type: PLASMA No comment entered. Ordering Provider: CALE WALLIS Report Released Date/Time : Nov 03, 2023 09:48 AM Reporting Lab: [place] [facility] [address] [place] [address] Performin g Lab: [place] [facility] [address] [place] [address] [facility] COMPREHENS AZAR METABOLIC PANEL CHLORIDE [MOLES/VOLU ME] IN SERUM OR PLASMA 104 meq/L 98 - 107 11/02 Specimen Type: PLASMA No comment entered. Ordering Provider: CALE WALLIS Report Released Date/Time : Nov 03, 2023 09:48 AM Reporting Lab: [place] [facility] [address] [place] [address] Performin g Lab: [place] [facility] [address] [place] [address] [facility] COMPREHENS AZAR METABOLIC PANEL CARBON DIOXIDE, TOTAL [MOLES/VOLU ME] IN SERUM OR PLASMA 25 meq/L 22 - 31 11/02 Specimen Type: PLASMA No comment entered. Ordering Provider: CALE WALLIS Report Released Date/Time : Nov 03, 2023 09:48 AM Reporting Lab: [place] [facility] [address] [place] [address] Performin g Lab: [place] [facility] [address] [place] [address] [facility] COMPREHENS AZAR METABOLIC PANEL CALCIUM [MASS/VOLUM E] IN SERUM OR PLASMA 9.2 mg/dL 8.4 - 10.4 11/02 Specimen Type: PLASMA No comment entered. Ordering Provider: CALE WALLIS Report Released Date/Time : Nov 03, 2023 09:48 AM Reporting Lab: [place] [facility] [address] [place] [address] Performin g Lab: [place] [facility] [address] [place] [address] [facility] COMPREHENS AZAR METABOLIC PANEL PROTEIN [MASS/VOLUM E] IN SERUM OR PLASMA 7.6 g/dL 6 - 8.6 11/02 Specimen Type: PLASMA No comment entered. Ordering Provider: CALE WALLIS Report Released Date/Time : Nov 03, 2023 09:48 AM Reporting Lab: [place] [facility] [address] [place] [address] Performin g Lab: [place] [facility] [address] [place] [address] [facility] COMPREHENS AZAR METABOLIC PANEL ALBUMIN [MASS/VOLUM E] IN SERUM OR PLASMA 4.3 g/dL 3.4 - 5 11/02 Specimen Type: PLASMA No comment entered. Ordering Provider: CALE WALLIS Report Released Date/Time : Nov 03, 2023 09:48 AM Reporting Lab: [place] [facility] [address] [place] [address] Performin g Lab: [place] [facility] [address] [place] [address] [facility] COMPREHENS AZAR METABOLIC PANEL BILIRUBIN.T OTAL [MASS/VOLUM E] IN SERUM OR PLASMA 0.4 mg/dL 0.2 - 1.2 11/02 Specimen Type: PLASMA No comment entered. Ordering Provider: CALE WALLIS Report Released Date/Time : Nov 03, 2023 09:48 AM Reporting Lab: [place] [facility] [address] [place] [address] Performin g Lab: [place] [facility] [address] [place] [address] [facility] COMPREHENS AZAR METABOLIC PANEL ALKALINE PHOSPHATASE [ENZYMATIC ACTIVITY/VO LUME] IN SERUM OR PLASMA 103 U/L 40 - 150 11/02 Specimen Type: PLASMA No comment entered. Ordering Provider: CALE WALLIS Report Released Date/Time : Nov 03, 2023 09:48 AM Reporting Lab: [place] [facility] [address] [place] [address] Performin g Lab: [place] [facility] [address] [place] [address] [facility] COMPREHENS AZAR METABOLIC PANEL ASPARTATE AMINOTRANSF ERASE [ENZYMATIC ACTIVITY/VO LUME] IN SERUM OR PLASMA 30 U/L 5 - 34 11/02 Specimen Type: PLASMA No comment entered. Ordering Provider: CALE WALLIS Report Released Date/Time : Nov 03, 2023 09:48 AM Reporting Lab: [place] [facility] [address] [place] [address] Performin g Lab: [place] [facility] [address] [place] [address] [facility] COMPREHENS AZAR METABOLIC PANEL ALANINE AMINOTRANSF ERASE [ENZYMATIC ACTIVITY/VO LUME] IN SERUM OR PLASMA 29 U/L 8 - 40 11/02 Specimen Type: PLASMA No comment entered. Ordering Provider: CALE WALLIS Report Released Date/Time : Nov 03, 2023 09:48 AM Reporting Lab: [place] [facility] [address] [place] [address] Performin g Lab: [place] [facility] [address] [place] [address] [facility] COMPREHENS AZAR METABOLIC PANEL GLOMERULAR FILTRATION RATE/1.73 SQ M.PREDICTED [VOLUME RATE/AREA] IN SERUM, PLASMA OR BLOOD BY CREATININE- BASED FORMULA (CKD-EPI 2020) 55 11/02 Specimen Type: PLASMA No comment entered. Ordering Provider: CALE WALLIS Report Released Date/Time : Nov 03, 2023 09:48 AM Reporting Lab: [place] [facility] [address] [place] [address] Performin g Lab: [place] [facility] [address] [place] [address] [facility] VITAMIN D, 25-HYDROXY 25-HYDROXYV ITAMIN D3 [MASS/VOLUM E] IN SERUM OR PLASMA 35.4 ng/mL 30 - 96 11/02 Specimen Type: SERUM No comment entered. Ordering Provider: CALE WALLIS Report Released Date/Time : Nov 03, 2023 09:48 AM Reporting Lab: [place] [facility] [address] [place] [address] Performin g Lab: [place] [facility] [address] [place] [address] [facility] Vital Signs Combined list of inpatient and outpatient Vital Signs from Department of Defense and Veterans Affairs, ranging from 12 months to all on record, depending upon the facility. Vital Sign Value Date Comments Source SYSTOLIC BLOOD PRESSURE 134 01/19/2025 11:45:00 [facility] DIASTOLIC BLOOD PRESSURE 55 01/19/2025 11:45:00 [facility] WEIGHT 245.3 01/19/2025 11:45:00 [facility] BMI 33 kg/m2 01/19/2025 11:45:00 [facility] TEMPERATURE 98.4 01/19/2025 11:45:00 [facility] PULSE 74 01/19/2025 11:45:00 [facility] RESPIRATION 18 01/19/2025 11:45:00 [facility] SYSTOLIC BLOOD PRESSURE 132 12/22/2024 13:02:00 [facility] DIASTOLIC BLOOD PRESSURE 71 12/22/2024 13:02:00 [facility] TEMPERATURE 97.8 12/22/2024 13:02:00 [facility] PULSE 68 12/22/2024 13:02:00 [facility] SYSTOLIC BLOOD PRESSURE 137 11/28/2024 09:33:00 [facility] DIASTOLIC BLOOD PRESSURE 72 11/28/2024 09:33:00 [facility] PULSE OXIMETRY 94 11/28/2024 09:33:00 [facility] WEIGHT 250.7 11/28/2024 09:33:00 [facility] BMI 34 kg/m2 11/28/2024 09:33:00 [facility] PAIN 1 11/28/2024 09:33:00 [facility] TEMPERATURE 98.4 11/28/2024 09:33:00 [facility] PULSE 74 11/28/2024 09:33:00 [facility] RESPIRATION 18 11/28/2024 09:33:00 [facility] Encounters Combined list of: 1) Encounters from Department of Veterans Affairs facilities going backup to the last 18 months, not all VA inpatient encounters are included; 2) Encounters from the Department of Defense facilities going backup to 280 months. 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, unspeci fied Humphrey WALLIS ОЛЬГА Villafana 11/10 [facility] FEE [id number] Diagnos is: ICD-10- CM Z46.1 Encount er for fitting and adjustm ent of hearing aid ARASELI JOHNSTON RT P 11/10 [facility] UNLISTED MISC PROSTHETIC SER [id number] Diagnos is: ICD-10- CM Z46.1 Encount er for fitting and adjustm ent of hearing aid ARASELI JOHNSTON RT P 11/10 [facility] Outpatient Encounter [id number] 11/22 [facility] Outpatient Encounter [id number] 11/23 [facility] Outpatient Encounter [id number] 12/13 [facility] Outpatient Encounter [id number] 03/28 [facility] OFF/OP EST NOVEMBER X REQ PHY/QHP [id number] Diagnos is: ICD-10- CM Z23 Encount er for immuniz Haylie Guillen 04/18 [facility] Outpatient Encounter [id number] SUNITHA CHAVEZ T 05/04 [facility] N [facility] Outpatient Encounter [id number] 05/04 [facility] N [facility] Outpatient Encounter [id number] 05/05 [facility] N [facility] Outpatient Encounter [id number] 06/13 [facility] Encounter [id number] 06/26 [facility] Encounter [id number] 07/11 [facility] N [facility] Outpatient Encounter [id number] 07/27 [facility] N [facility] Outpatient Encounter [id number] 07/27 [facility] En[facility] [id number] 08/09 [facility] N [facility] Outpatient Encounter [id number] 08/18 [facility] Encounter [id number] 08/22 [facility] N [facility] Outpatient Encounter [id number] 09/13 [facility] Outpatient Encounter [id number] 09/26 [facility] COMPRE OPH EXAM EST [place] 1/ [id number] Diagnos is: ICD-10- CM E11.9 Type 2 diabete s mellitu s without complic ations JUAN COMER S 11/14 [facility] Outpatient Encounter [id number] 11/23 [facility] Outpatient Encounter [id number] 11/27 [facility] OFFICE O/P EST MOD 30 MIN [id number] Diagnos is: ICD-10- CM E11.9 Type 2 diabete s mellitu s without complic ations Sal RODRIGUEZ 11/28 [facility] Outpatient Encounter [id number] 11/30 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 Social History Type Response Date Comment Sourc e Tobacco smoking status NHIS VA-TOBACCO NEVER USED CIGARETTES 11/28/2024 [facility] History of tobacco use VA-TOBACCO NEVER USED OTHER TYPE 11/28/2024 [facility] History of tobacco use VA-TOBACCO FORMER USER 11/11/2023 [facility] History of tobacco use VA-TOBACCO NEVER USED 10/02/2022 [facility] History of tobacco use VA-TOBACCO NEVER USED 10/20/2021 [facility] History of tobacco use VA-TOBACCO NEVER USED 10/03/2020 [facility] History of tobacco use VA-TOBACCO NEVER USED 07/04/2019 [facility] History of tobacco use VA-TOBACCO NEVER USED 10/10/2018 [facility] History of tobacco use VA-TOBACCO NEVER USED 04/19/2018 [facility] History of tobacco use LIFETIME NON-TOBACCO USER 07/02/2014 [facility] Plan of Care List of future care activities from Department of Veterans Affairs facilities. Additional future care activities may be listed in the Assessment and Plan section. Date/Time Care Activity Care Activity Detail Facili ty 08/09/2025 AMBULATORY - MEDICINE AMBULATORY - MEDICI [facility] Advance Directives List of completed, amended, or rescinded Advance Directives on record at Department of Veterans Affairs facilities. An actual copy of the Directive is not included. Date Advance Directive Provider Source 07/25/2015 [facility] 07/19/2014 ADVANCE DIRECTIVE DISCUSSION DAYLIN [facility]
[2025-03-26 15:15] VITALS: BP 171/68; PULSE 99; RESP 20; TEMP 36.7; O2SAT 96; BMI 33.2
--- NOTE | 2025-03-26 15:46 | USCV_ITS ---
FaazlMarino menon Age: 79 Gender: M : 1945 Exam Date: 03/26/2025 15:55 Ordering Phys: Negin Dowell Technologist: SARA Exam Location: [facility] [place] Indication: left lower extremity swelling/pain HISTORY: Lower extremity pain-LEFT PROCEDURES: Venous duplex imaging was performed in only the left lower extremity. The following venous structures were evaluated: common femoral vein, profunda vein, proximal portion of the greater saphenous vein, superficial femoral vein, and the popliteal vein. In addition, the posterior tibial and peroneal trunk were evaluated. FINDINGS: DVT visualized in the LEFT FV to the left POP-no evidence of SVT CONCLUSIONS DVT LEFT common femoral and femoral vein extending to popliteal vein Lavell Estevez MD (Electronically Signed) Final Date: 26 March 2025 16:40 S
[2025-03-26 16:45] VITALS: BP 144/85; PULSE 76; RESP 16; O2SAT 99
--- NOTE | 2025-03-26 16:52 | W.ED.EXTPRO ---
HPI - Extremity Problem General: Chief complaint: Extremity Problem,Nontraumatic Stated complaint: L leg swelling, pain Time Seen by Provider: 03/26/25 16:13 Source: patient Mode of arrival: ambulatory Limitations: no limitations History of Present Illness: Patient very nice 79-year-old male who presents to ED today with a complaint of a discomfort back behind his left knee and some noted swelling to the left lower leg x 2 days. Patient states he was instructed to come here to rule out DVT after he was seen during a clinic visit today. Patient has no previous history of DVT/PE. No known history hypercoagulable state. No recent surgery. No periods of prolonged inactivity/immobilization. No known history of malignancy. He is not having any complaints of chest pain, shortness of breath, or difficulty breathing. MD Complaint: extremity pain and extremity swelling Onset (ago): day(s) Pain Consistency: constant Location: left and lower extremity Radiation: none Relieving factors: nothing Exacerbating factors: nothing Associated symptoms: Reports no associated symptoms; Deny chest pain, fever(s) or rash Related Data Home Medications ?Medication ?Instructions ?Recorded ?Confirmed atorvastatin 10 mg tablet 10 mg PO DAILY 04/06/23 03/26/25 cetirizine 10 mg tablet 10 mg PO DAILY PRN Allergy Symptoms 04/06/23 03/26/25 lisinopril 10 mg tablet 10 mg PO DAILY 04/06/23 03/26/25 metformin 500 mg tablet 500 mg PO BID 04/06/23 03/26/25 tamsulosin 0.4 mg capsule 0.4 mg PO BEDTIME 04/06/23 03/26/25 Previous Rx's ?Medication ?Instructions ?Recorded magnesium citrate 300 ml PO DAILY PRN constipation 06/29/23 #296 mL apixaban 5 mg tablet (Eliquis) 5 mg PO BID #74 tabs 03/26/25 Allergies Allergy/AdvReac Type Severity Reaction Status Date / Time No Known Allergies Allergy Verified 03/26/25 15:20 Review of Systems Const: Denies: fever(s) Card: Denies: chest pain, palpitations, irregular heart rhythm, lightheadedness, syncope, pre-syncope, dyspnea on exertion or orthopnea Resp: Denies: dyspnea or hemoptysis Musc: Reports: extremity pain and extremity swelling; Denies: joint pain, joint swelling, joint redness, joint warmth, joint stiffness, limited range of motion, muscle cramps or muscle weakness Skin/Breast: Denies: rash Neuro: Denies: numbness in extremities, weakness in extremities, sensory changes or difficulty walking PFSH ED PFSH: Surgical History Hx of colonoscopy with polypectomy x2 4 yrs ago Social History Smoking and tobacco/nicotine status: never used tobacco/nicotine Physical Exam Const: COMMON NORMALS: no acute distress, average body habitus, patient oriented x3, no limitations, healthy appearing, alert and well nourished GENERAL APPEARANCE: cooperative ORIENTATION/CONSCIOUSNESS: Yes awake, Yes oriented to person, Yes oriented to place and Yes oriented to time Resp: COMMON NORMALS: normal respiratory effort and clear to auscultation bilaterally AUSCULTATION: clear to auscultation bilaterally Cardio: COMMON NORMALS: regular rate and regular rhythm RATE: regular rate RHYTHM: regular rhythm Extremity: COMMON NORMALS: full ROM, capillary refill normal, no joint enlargement, no clubbing, cyanosis or edema and no pedal edema GENERAL: Yes normal exam except as noted OTHER: + edema to L LE when compared to R; mild discomfort to popliteal space with palpation; NV intact with normal sensation and distal pulses/sensation; no overlying erythema/warmth Neuro: COMMON NORMALS: patient oriented x3, moves all extremities, no focal motor deficits, no sensory deficits noted and gait normal SENSORIUM/ORIENTATION: Yes alert, Yes oriented to person, Yes oriented to place and Yes oriented to time Skin: COMMON NORMALS: no rashes or lesions noted GENERAL SKIN EXAM: no rashes or lesions noted Course Vital Signs: Vital signs: Vital Signs Temperature 98.1 F 03/26/25 15:15 Pulse Rate 76 03/26/25 16:45 Respiratory Rate 16 03/26/25 16:45 Blood Pressure 144/85 03/26/25 16:45 Pulse Oximetry 99 03/26/25 16:45 Oxygen Delivery Me thod Room Air 03/26/25 16:45 MDM - Extremity (Nontraumatic) Medical Decision Making Patient here with discomfort and edema involving his left lower extremity over the past 2 days. US imaging showing positive DVT to his common femoral vein and popliteal vein. He is not complaining of chest pain or shortness of breath. He is not tachycardic or hypoxic. Treatment at this time will be with Eliquis. Recommend follow-up with primary care in 1 to 2 weeks for re-evaluation and plan for length of anticoagulation. Signs and symptoms that should prompt medical reevaluation were discussed with patient who verbalized understanding. Differential Diagnosis Likely deep vein thrombosis of lower extremity All radiology interpretation(s) finalized by discharge Discharge Plan Discharge Patient Disposition: Home Clinical Impression: Acute deep vein thrombosis (DVT) of femoral vein of left lower extremity, Acute deep vein thrombosis (DVT) of popliteal vein of left lower extremity Condition: Stable Prescriptions: New Eliquis 5 mg tablet 5 mg PO BID Qty: 74 0RF Rx Instructions: Take two tabs (10mg) PO BID x 7 days then one tab (5mg) PO BID thereafter No Action metformin 500 mg tablet 500 mg PO BID tamsulosin 0.4 mg capsule 0.4 mg PO BEDTIME lisinopril 10 mg tablet 10 mg PO DAILY atorvastatin 10 mg tablet 10 mg PO DAILY cetirizine 10 mg tablet 10 mg PO DAILY PRN (Reason: Allergy Symptoms) magnesium citrate Solution 300 ml PO DAILY PRN (Reason: constipation) Qty: 296 0RF Rx Instructions: take as directed for colonsocopy prep Discharge Orders: Discharge ED (Routine); Ordered 03/26/25 Ordered By: Negin Dowell Referrals: Hilary Santamaria MD [Primary Care Provider, [facility]] Patient Instructions: Apixaban (By mouth), Deep Vein Thrombosis (DC), Patient Portal & Johana Instructions Activity Restrictions/Additional Instructions: As we discussed, ultrasound imaging did show DVT/blood clot to your left lower leg. We will place you on blood thinners (Eliquis). You need to fill this medication today and start it immediately. You need to seek medical re-evaluation for onset of severe chest pain, shortness of breath, difficulty breathing, lightheadedness/dizziness, worsening leg pain or swelling, or any other concerns you may have. You need to follow-up with primary care in a few weeks so they can refill this medication and discuss with you how long you need to stay on it. 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
[2025-03-26 17:31] VITALS: BP 123/70; PULSE 73; O2SAT 92
== END 2025-03-26 17:33 | disposition home or self-care (01) ==
PROVIDERS: Emergency Provider Physician Assistant; PCP Family Medicine
DX: I82.412 Acute embolism and thrombosis of left femoral vein (principal); I82.432 Acute embolism and thrombosis of left popliteal vein; E11.42 Type 2 diabetes mellitus with diabetic polyneuropathy; L60.3 Nail dystrophy; E11.8 Type 2 diabetes mellitus with unspecified complications; Z79.84 Long term (current) use of oral hypoglycemic drugs
CPT/HCPCS: 11721; 93971; 99214; 99284

== ENCOUNTER 2025-07-02 11:13 | Emergency (ER) | payer OTHER, SELFPAY ==
--- NOTE | 2025-07-02 11:15 | USCV_ITS ---
Marino Ho Age: 79 Gender: M : 1945 Exam Date: 07/02/2025 11:37 Ordering Phys: Marino Aly Technologist: SARA Exam Location: [facility] [place] Indication: HX OF DVT HISTORY: DVT-LEFT PROCEDURES: Venous duplex imaging was performed in only the left lower extremity. The following venous structures were evaluated: common femoral vein, profunda vein, proximal portion of the greater saphenous vein, superficial femoral vein, and the popliteal vein. In addition, the posterior tibial and peroneal trunk were evaluated. FINDINGS: There appears to be acute dvt from the LEFT CFV to the LEFT POP- simialr to the end of march CONCLUSIONS Persistent DVT extending from LEFT CFV, femoral and popliteal veins similiar to previous 03/26 Lavell Estevez MD (Electronically Signed) Final Date: 02 July 2025 15:32 S
[2025-07-02 11:30] VITALS: BP 140/65; PULSE 79; TEMP 36.6; O2SAT 97; BMI 33.2
--- NOTE | 2025-07-02 11:50 | W.ED.EXTPRO ---
HPI - Extremity Problem General: Chief complaint: Extremity Problem,Nontraumatic Stated complaint: [facility] sent for pos blood clot in left leg Time Seen by Provider: 07/02/25 11:38 History of Present Illness: 79-year-old male presents emergency room from the [place] [facility] was directed here because of swelling in his leg they were concerned about a blood clot in his left leg. He said some redness and swelling that began a couple of days ago.. No chest pain no shortness of breath. Patient was diagnosed with a DVT in March of this year that that occurred after a long airline flight. Associated symptoms: Deny chest pain, fever(s) or rash Related Data Home Medications ?Medication ?Instructions ?Recorded ?Confirmed atorvastatin 10 mg tablet 10 mg PO DAILY 04/06/23 03/26/25 cetirizine 10 mg tablet 10 mg PO DAILY PRN Allergy Symptoms 04/06/23 03/26/25 lisinopril 10 mg tablet 10 mg PO DAILY 04/06/23 03/26/25 metformin 500 mg tablet 500 mg PO BID 04/06/23 03/26/25 tamsulosin 0.4 mg capsule 0.4 mg PO BEDTIME 04/06/23 03/26/25 Previous Rx's ?Medication ?Instructions ?Recorded magnesium citrate 300 ml PO DAILY PRN constipation 06/29/23 #296 mL apixaban 5 mg tablet (Eliquis) 5 mg PO BID #74 tabs 03/26/25 Allergies Allergy/AdvReac Type Severity Reaction Status Date / Time No Known Allergies Allergy Verified 07/02/25 11:35 Review of Systems Const: Denies: fever(s) or chills Card: Reports: edema (Left); Denies: chest pain Resp: Denies: dyspnea GI: Denies: abdominal pain : Denies: dysuria, urinary frequency or urinary urgency Musc: Denies: neck pain or back pain Skin/Breast: Denies: rash PFSH ED PFSH: Surgical History Hx of colonoscopy with polypectomy x2 4 yrs ago Social History Smoking and tobacco/nicotine status: never used tobacco/nicotine Physical Exam Const: COMMON NORMALS: no acute distress GENERAL APPEARANCE: cooperative and comfortable ORIENTATION/CONSCIOUSNESS: Yes awake, Yes oriented to person, Yes oriented to place and Yes oriented to time HENMT: COMMON NORMALS: normocephalic, atraumatic and hearing grossly normal bilaterally HEAD & SCALP: normocephalic and atraumatic Resp: COMMON NORMALS: normal respiratory effort, No retractions, No use of accessory muscles and clear to auscultation bilaterally AUSCULTATION: clear to auscultation bilaterally Cardio: COMMON NORMALS: regular rate, regular rhythm and No murmurs present (Cardio) RATE: regular rate RHYTHM: regular rhythm GI: COMMON NORMALS: Soft to palpation and No hepatosplenomegaly present AUSCULTATION: Yes normoactive bowel sounds PALPATION: Yes Soft to palpation, No Tenderness to palpation present (GI), No Guarding due to palpation present (GI) and Yes No hepatosplenomegaly present Extremity: COMMON NORMALS: normal to inspection, capillary refill normal and no calf tenderness OTHER: Trace edema left lower extremity no erythema no induration Neuro: SENSORIUM/ORIENTATION: Yes oriented to person, Yes oriented to place and Yes oriented to time Skin: COMMON NORMALS: no rashes or lesions noted GENERAL SKIN EXAM: no rashes or lesions noted Course Vital Signs: Vital signs: Vital Signs Temperature 97.8 F 07/02/25 11:30 Pulse Rate 69 07/02/25 12:21 Respiratory Rate 18 07/02/25 12:21 Blood Pressure 140/73 07/02/25 12:21 Pulse Oximetry 94 07/02/25 12:21 Oxygen Delivery Me thod Room Air 07/02/25 12:21 MDM - Extremity (Nontraumatic) Medical Decision Making Medical decision making Social determinants: None I reviewed the patient's medical record. 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 No significant change Assessment of risk: Level of risk: Moderate Hospitalization considerations: None Reexamination: Stable Assessment and plan: Exam largely unchanged from venous duplex and March. Patient is stable at this time he is not having any chest pain or shortness of breath will discharge patient home, asked him to continue his Eliquis as previously prescribed and follow-up with his primary care doctor to determine when he can get off of it. From description but the history is precipitated by a long flight. All radiology interpretation(s) finalized by discharge Discharge Plan Discharge Patient Disposition: Home Clinical Impression: Deep vein thrombosis of lower extremity Qualifiers: Affected thrombotic vein of extremity: femoral Chronicity: chronic Laterality: left Qualified Code(s): I82.512 - Chronic embolism and thrombosis of left femoral vein Condition: Stable Prescriptions: No Action metformin 500 mg tablet 500 mg PO BID tamsulosin 0.4 mg capsule 0.4 mg PO BEDTIME lisinopril 10 mg tablet 10 mg PO DAILY atorvastatin 10 mg tablet 10 mg PO DAILY cetirizine 10 mg tablet 10 mg PO DAILY PRN (Reason: Allergy Symptoms) magnesium citrate Solution 300 ml PO DAILY PRN (Reason: constipation) Qty: 296 0RF Rx Instructions: take as directed for colonsocopy prep Eliquis 5 mg tablet 5 mg PO BID Qty: 74 0RF Rx Instructions: Take two tabs (10mg) PO BID x 7 days then one tab (5mg) PO BID thereafter Discharge Orders: Discharge ED (Routine); Ordered 07/02/25 Ordered By: Monico Harper Referrals: Hilary Santamaria MD [Primary Care Provider, Family Practice] Patient Instructions: Opioid Safety, Pain Management, Patient Portal & Johana Instructions Activity Restrictions/Additional Instructions: Thank you for choosing [facility] for your healthcare needs today. It is very important that you follow up as instructed or that you return to the Emergency Department should you have concerns or if your condition changes or worsens in any way. Emergency department visits are focused on emergent conditions, in some cases you may require further evaluation on an outpatient basis. You were seen in the emergency room with concern about swelling in your leg. Ultrasound shows you have persistent DVT which is not unusual given the timeframe from that was initially diagnosed in March of this year. You reported no shortness of breath or chest discomfort. Your vital signs were stable continue on your Eliquis (Please note that included in your discharge packet is information concerning opioid safety and pain management. This information is given to all patients were discharged from the ER regardless of their discharge diagnosis or the medicines they usually take or are prescribed.) Print Language: Korean Coding Level of Care Code ED [employer] for [employer]
[2025-07-02 12:21] VITALS: BP 140/73; PULSE 69; RESP 18; O2SAT 94
[2025-07-02 12:58] VITALS: BP 124/63; PULSE 64; O2SAT 94
== END 2025-07-02 12:59 | disposition home or self-care (01) ==
PROVIDERS: Emergency Provider Family Medicine; PCP Family Medicine
DX: I82.512 Chronic embolism and thrombosis of left femoral vein (principal); I82.412 Acute embolism and thrombosis of left femoral vein; I82.432 Acute embolism and thrombosis of left popliteal vein; Z79.84 Long term (current) use of oral hypoglycemic drugs; Z79.01 Long term (current) use of anticoagulants
CPT/HCPCS: 11721; 93971; 99284